=== PATIENT | female | born 1990 | race Two or more races ===

== ENCOUNTER 2019-06-24 12:53 | Emergency (ER) | payer OTHER ==
[~2019-06-24] VITALS: Ht 160 cm; Wt 47.6 kg
[2019-06-24] MEDS ORDERED: OBSTETRIX DHA1 EACH PO (14:00)
== END 2019-06-24 18:15 | disposition home or self-care (01) ==
LOC: ER 12:53
DX: O26.892 Other specified pregnancy related conditions, second trimester (principal); R10.2 Pelvic and perineal pain; Z34.02 Encounter for supervision of normal first pregnancy, second trimester

== ENCOUNTER 2019-06-26 17:27 | Inpatient (IN) | payer OTHER ==
[~2019-06-26] VITALS: Ht 160 cm; Wt 51.3 kg
[~2019-06-26 17:27] MED LIST: OBSTETRIX DHA1 EACH PO
[2019-06-27] MEDS ORDERED: TYLENOL325 MG (08:32)
== END 2019-06-28 09:39 | disposition home or self-care (01) | DRG 832 ==
LOC: OB/GYN 17:27
PROVIDERS: ADMIT Obstetrics & Gynecology
PROC: 4A1HXCZ Monitoring of Products of Conception, Cardiac Rate, External Approach (ICD-10-PCS; 2019-06-26)
PROC: BY4CZZZ Ultrasonography of Second Trimester, Single Fetus (ICD-10-PCS; principal; 2019-06-27)
PROC: BT4JZZZ Ultrasonography of Kidneys and Bladder (ICD-10-PCS; 2019-06-27)
DX: O26.842 Uterine size-date discrepancy, second trimester (principal); N13.39 Other hydronephrosis; O99.89 Other specified diseases and conditions complicating pregnancy, childbirth and the puerperium

== ENCOUNTER 2019-10-31 09:09 | Outpatient (CLI) | payer OTHER ==
[~2019-10-31 09:09] MED LIST changes: +TYLENOL325 MG
== END 2019-10-31 09:57 | disposition home or self-care (01) ==
LOC: NST 09:09
DX: Z34.83 Encounter for supervision of other normal pregnancy, third trimester (principal)

== ENCOUNTER 2019-11-10 09:27 | Inpatient (IN) | payer OTHER ==
[~2019-11-10] VITALS: Ht 160 cm; Wt 55.8 kg
[2019-11-26] MEDS ORDERED: CEPHALEXIN750 MG PO (07:00)
== END 2019-11-28 15:33 | disposition home or self-care (01) | DRG 807 ==
LOC: OB/GYN 11-26 03:06 → LDR 11-26 03:06 → OB/GYN 11-26 19:25
PROVIDERS: ADMIT Obstetrics & Gynecology
PROC: 10E0XZZ Delivery of Products of Conception, External Approach (ICD-10-PCS; principal; 2019-11-26)
PROC: 0KQM0ZZ Repair Perineum Muscle, Open Approach (ICD-10-PCS; 2019-11-26)
PROC: 3E033VJ Introduction of Other Hormone into Peripheral Vein, Percutaneous Approach (ICD-10-PCS; 2019-11-26)
PROC: 4A1HXCZ Monitoring of Products of Conception, Cardiac Rate, External Approach (ICD-10-PCS; 2019-11-26)
DX: O70.1 Second degree perineal laceration during delivery (principal); Z37.0 Single live birth; Z3A.39 39 weeks gestation of pregnancy; O99.824 Streptococcus B carrier state complicating childbirth

== ENCOUNTER 2025-02-16 10:57 | Outpatient (CLI) | payer OTHER ==
[~2025-02-16 10:57] MED LIST changes: +CEPHALEXIN750 MG PO
== END 2025-02-16 11:52 | disposition home or self-care (01) ==
LOC: NST 10:57
PROVIDERS: ATTEND Obstetrics & Gynecology
DX: Z34.83 Encounter for supervision of other normal pregnancy, third trimester (principal)

== ENCOUNTER 2025-02-23 12:59 | Inpatient (IN) | payer OTHER ==
[~2025-02-23] VITALS: Ht 172.7 cm; Wt 54.4 kg
[2025-03-07] VITALS (7 sets, daily range): BP systolic 104–126; BP diastolic 63–87
[2025-03-07 09:46] LABS: BASO % 0.5 % (0.1-1.2); EOS # 0.23 (0.04-0.54); EOS % 2.5 % (0.7-7.0); LYMPH # 1.26 (1.18-3.74); LYMPH % 13.7 % (19.3-53.1); MEAN PLATELET VOLUME 12.00 fl (9.4-12.4); MONO # 0.61 (0.24-0.82); MONO % 6.6 % (4.7-12.5); NEUT # 6.99 (1.56-6.13); NEUT % 75.7 % (34.0-71.1); RED CELL DISTRIBUTION WIDTH 13.9 % (11.6-14.4)
[2025-03-07] MEDS ORDERED: OXYTOCIN 500 ML IV SCH (10:15)
[2025-03-07] MEDS ORDERED: RINGERS SOLUTION,LACTATED 1,000 ML IV SCH (10:15)
[2025-03-07 10:31] LABS: INR < 0.93
[2025-03-07] MEDS ORDERED: MORPHINE SULFATE 4 MG/ML CARTRIDGE IV STA (11:35)
[2025-03-07] MEDS ORDERED: ACETAMINOPHEN WITH CODEINE 1 UDTAB TABLET PO PRN (14:30)
[2025-03-07] MEDS ORDERED: OXYTOCIN 1,000 ML IV SCH (14:30)
[2025-03-07] MEDS ORDERED: CHLORHEXIDINE GLUCONATE 120 ML BOTTLE TOP ONE (14:45)
[2025-03-07] MEDS ORDERED: ERYTHROMYCIN BASE OPHT 1GM EACH TUBE OP ONE (14:45)
[2025-03-08 00:44] VITALS: BP 102/68
[2025-03-08 16:00] VITALS: BP 111/75
[2025-03-09 01:00] VITALS: BP 108/67
[2025-03-09 08:56] VITALS: BP 122/76
== END 2025-03-09 15:43 | disposition home or self-care (01) | DRG 807 ==
LOC: OB/GYN 14:00 → LDR 03-07 08:59 → OB/GYN 03-07 14:23
PROVIDERS: ADMIT Obstetrics & Gynecology; ATTEND Obstetrics & Gynecology
PROC: 10E0XZZ Delivery of Products of Conception, External Approach (ICD-10-PCS; principal; 2025-03-07)
PROC: 4A1HXCZ Monitoring of Products of Conception, Cardiac Rate, External Approach (ICD-10-PCS; 2025-03-07)
PROC: 3E033VJ Introduction of Other Hormone into Peripheral Vein, Percutaneous Approach (ICD-10-PCS; 2025-03-07)
DX: O80 Encounter for full-term uncomplicated delivery (principal); Z37.0 Single live birth; Z3A.39 39 weeks gestation of pregnancy

== ENCOUNTER 2025-02-26 02:07 | Outpatient (CLI) | payer OTHER ==
[~2025-02-26] VITALS: Ht 157.5 cm; Wt 54.4 kg
[2025-02-26 01:30] VITALS: BP 121/72
[2025-02-26] MEDS ORDERED: RINGERS SOLUTION,LACTATED 1,000 ML IV SCH (02:15)
[2025-02-26 03:12] LABS: BASO % 0.2 % (0.1-1.2); EOS # 0.21 (0.04-0.54); EOS % 2.3 % (0.7-7.0); HEMATOCRIT 33.2 % (34.1-44.9); HEMOGLOBIN 11.1 g/dL (11.2-15.7); LYMPH % 9.9 % (19.3-53.1); MEAN CORPUSCULAR HEMOGLOBIN 28.8 pg (25.6-32.2); MONO # 0.71 (0.24-0.82); MONO % 7.8 % (4.7-12.5); NEUT # 7.22 (1.56-6.13); NEUT % 79.1 % (34.0-71.1); PLATELET COUNT 139 K/uL (163-369); RED BLOOD COUNT 3.86 M/uL (3.93-5.22); RED CELL DISTRIBUTION WIDTH 13.7 % (11.6-14.4)
[2025-02-26 03:37] LABS: INR 0.95; PARTIAL THROMBOPLASTIN TIME 24.4 SECONDS (22.0-34.0); PROTHROMBIN TIME 10.4 SECONDS (9.0-11.5)
[2025-02-26 03:43] LABS: BILIRUBIN TOTAL 0.4 mg/dL (0.3-1.2); CREATININE SERUM 0.54 mg/dL (0.55-1.02); GFR 127.74; GLOBULINA 3.7 G/DL (2.4-3.5); POTASSIUM 3.95 mEq/L (3.5-5.1); TOTAL PROTEIN 6.7 gm/dL (6.4-8.2)
[2025-02-26 07:38] VITALS: BP 115/75
[2025-02-26 09:00] VITALS: BP 115/75
== END 2025-02-26 09:25 | disposition home or self-care (01) ==
LOC: OBS/DEL 02:07
PROVIDERS: ATTEND Obstetrics & Gynecology
DX: O26.893 Other specified pregnancy related conditions, third trimester (principal); Z3A.36 36 weeks gestation of pregnancy